=== PATIENT | male | born 1980 | race American Indian/Alaskan Native ===

== ENCOUNTER 2023-06-28 18:05 | Emergency (ER) | payer MEDICAID, OTHER ==
[2023-06-28 18:18] VITALS: BP 111/75; PULSE 81
[2023-06-28] MEDS: Ketorolac 30 MG/ML SDV IM ONE (18:23)
[2023-06-28] MEDS: Take Home: Ondansetron 4 MG Tab.DIS, 5 Tab Pack PO ONE (18:29)
== END 2023-06-28 18:35 | disposition home or self-care (01) ==
LOC: DL.ED 18:05
DX: J98.8 Other specified respiratory disorders (principal); Z88.0 Allergy status to penicillin; Z88.1 Allergy status to other antibiotic agents
CPT/HCPCS: 96372; 99282; 99283; J1885; Q0162

== ENCOUNTER 2024-01-28 13:36 | Emergency (ER) | payer MEDICAID ==
[2024-01-28] MEDS: Acetaminophen 500 MG Tab PO ONE (14:05)
[2024-01-28 14:06] LABS: BASOPHILS PERCENT AUTO 0.1 % (0.0-1.0); HEMATOCRIT 40.6 % (40.0-54.0); HEMOGLOBIN 13.8 g/dL (14.0-18.0); LYMPHOCYTES PERCENT AUTO 5.3 % (20.5-50.1); MEAN CORPUSCULAR HEMOGLOBIN 29.7 pg (27.0-34.0); MEAN CORPUSCULAR VOLUME 87.5 fL (80-100); MONOCYTES PERCENT AUTO 7.2 % (2-8); NEUTROPHILS PERCENT AUTO 87.4 % (42.2-75.2); PLATELET COUNT,PLT 197 10^3/uL (150-450); RED BLOOD CELL COUNT 4.64 10^6/uL (4.6-6.2)
[2024-01-28] MEDS: Sodium Chloride 0.9% 10 ML Syringe FLUSH PRN (14:13)
[2024-01-28 14:24] LABS: PROTHROMBIN TIME 10.8 SEC (9.0-12.0); PTT,PARTIAL THROMBOPLSTIN TIME 31.2 SEC (22.0-34.0)
[2024-01-28 14:26] LABS: A/G RATIO 0.78; ALANINE AMINOTRANSFERASE,ALT 15 U/L (16-63); ALBUMIN 2.9 g/dL (3.4-5.0); ALKALINE PHOSPHATASE 82 U/L (46-116); ANION GAP 9.3 mEq/L (7-13); ASPARTATE AMNIOTRANSFERASE,AST 17 U/L (15-37); BILIRUBIN TOTAL 0.6 mg/dL (0.2-1.0); BLOOD UREA NITROGEN,BUN 11 mg/dL (7-18); BUN/CREATININE RATIO 10.7 (No establ ref range); C-REACTIVE PROTEIN 9.99 ng/dL (<=0.50); CALCIUM 8.2 mg/dL (8.5-10.1); CARBON DIOXIDE,CO2 25 mmol/L (21-32); CHLORIDE,CL 98 mmol/L (98-107); CREATININE 1.03 mg/dL (0.70-1.30); EST CRCL DRUG DOSING (CG) 88.24 mL/min; ESTIMATED GFR 94 mL/min (>=60); ETHANOL BLOOD MEDICAL < 3 mg/dL (0); GLUCOSE RANDOM 117 mg/dL (70-99); MAGNESIUM 1.3 mg/dL (1.8-2.4); POTASSIUM,K 3.3 mmol/L (3.5-5.1); PROTEIN TOTAL,TP 6.6 g/dL (6.4-8.2); SODIUM,NA 129 mmol/L (136-145)
[2024-01-28 14:29] LABS: LACTIC ACID 1.3 mmol/L (0.4-2.0)
[2024-01-28] MEDS: Sodium Chloride 0.9% 1,000 ML IV ONE (14:46)
[2024-01-28] MEDS: Magnesium Sulfate/Water Premix 4 GM in Premix Bag 1 BAG IV ONE (14:46)
[2024-01-28] MEDS: Magnesium Sulfate/Water Premix 100 ML ONE (14:46)
[2024-01-28] MEDS: Iopamidol 612 MG/ML 100 ML Bottle IVPUSH ONE (15:00)
[2024-01-28 15:40] LABS: APPEARANCE,URINE CLEAR (CLEAR); BILIRUBIN,URINE NEGATIVE (NEGATIVE); COLOR,URINE YELLOW (YELLOW); GLUCOSE,URINE NEGATIVE (NEGATIVE); KETONES,URINE NEGATIVE (NEGATIVE); LEUKOCYTE ESTERASE,URINE NEGATIVE (NEGATIVE); NITRITE,URINE NEGATIVE (NEGATIVE); OCCULT BLOOD,URINE TRACE-INTACT (NEGATIVE); PH,URINE 6.5 (5.0-9.0); PROTEIN,URINE NEGATIVE (NEGATIVE); UROBILINOGEN,URINE 0.2 mg/dL (0.2-1.0)
[2024-01-28 15:44] LABS: AMPHETAMINES,URINE POSITIVE (NEGATIVE); BARBITURATES,URINE NEGATIVE (NEGATIVE); BENZODIAZEPINE,URINE NEGATIVE (NEGATIVE); MDMA (ECSTASY), URINE NEGATIVE (NEGATIVE); METHADONE,URINE NEGATIVE (NEGATIVE); METHAMPHETAMINES,URINE POSITIVE (NEGATIVE); OPIATES,URINE NEGATIVE (NEGATIVE); OXYCODONE,URINE NEGATIVE (NEGATIVE); PHENCYCLIDINE,URINE NEGATIVE (NEGATIVE); TCA,URINE NEGATIVE (NEGATIVE)
[2024-01-28 15:50] LABS: BACTERIA,URINE FEW /HPF (0-FEW/HPF); EPITHELIAL CELLS,URINE RARE /HPF (NOT SEEN); MUCUS,URINE OCCASIONAL /LPF (NOT SEEN); RBC,URINE 0-5 /HPF (0-5); WBC,URINE NOT SEEN /HPF (0-5/HPF)
== END 2024-01-28 15:35 | disposition left against medical advice (07) ==
LOC: DL.ED 13:36
DX: I80.8 Phlebitis and thrombophlebitis of other sites (principal); T80.1XXA Vascular complications following infusion, transfusion and therapeutic injection, initial encounter; E83.42 Hypomagnesemia; F15.10 Other stimulant abuse, uncomplicated; E87.1 Hypo-osmolality and hyponatremia; E87.6 Hypokalemia; Z88.1 Allergy status to other antibiotic agents; Z88.0 Allergy status to penicillin
CPT/HCPCS: 36415; 71045; 73201-LT; 80053; 80305-QW; 80307; 81001; 83605; 83735; 84145; 84484; 85025; 85610; 85730; 86140; 87040; 93005; 96365; 96368; 99285-25; A9270-GY; J3370; J3475; J3490; J7030; J7050; Q9967

== ENCOUNTER 2024-01-28 16:46 | Inpatient (IN) | payer MEDICAID ==
[2024-01-28] MEDS ORDERED: Sodium Chloride 0.9% 10 ML Syringe FLUSH PRN (17:02)
[2024-01-28] MEDS: Magnesium Sulfate/Water Premix 4 GM in Premix Bag 1 BAG IV ONE (17:39)
[2024-01-28] MEDS: Sodium Chloride 0.9% 1,000 ML IV ONE (17:46)
[2024-01-28] MEDS: Vancomycin 1 GM SDV ONE (17:48)
[2024-01-28] MEDS: Cefepime 2 GM Vial IVPUSH ONE (17:53)
[2024-01-28] MEDS ORDERED: Naloxone 2 MG/2 ML Syringe IVPUSH PRN (19:37)
[2024-01-28] MEDS ORDERED: Magnesium Hydroxide 400 MG/5 ML Susp 30 ML Cup PO PRN (19:37)
[2024-01-28] MEDS ORDERED: Polyethylene Glycol 3350 Powder 17 GM Packet PO PRN (19:37)
[2024-01-28] MEDS ORDERED: Sennosides/Docusate Sodium 50-8.6 MG Tab PO PRN (19:37)
[2024-01-28] MEDS ORDERED: Albuterol/Ipratropium 3.0-0.5 MG/3 ML Neb Soln NEB PRN (19:37)
[2024-01-28] MEDS ORDERED: Acetaminophen 325 MG Tab PO PRN (19:37)
[2024-01-28] MEDS ORDERED: Ketorolac 30 MG/ML SDV IVPUSH PRN (19:37)
[2024-01-28] MEDS: Lactated Ringers 1,000 ML IV STA (20:00)
[2024-01-28 20:07] LABS: HEMOGLOBIN A1C 5.4 % (<5.7)
[2024-01-28] MEDS: Lactated Ringers 1,000 ML IV ONE (21:08)
[2024-01-28] MEDS ORDERED: Glucagon,Human Recombinant 1 MG Vial IM PRN (21:13)
[2024-01-28] MEDS ORDERED: 50% Dextrose in Water 50 ML Syringe IVPUSH PRN (21:13)
[2024-01-28] MEDS ORDERED: LORazepam 2 MG/ML SDV IVPUSH PRN (21:15)
[2024-01-28] MEDS ORDERED: Diltiazem 25 MG/5 ML SDV IVPUSH PRN (21:15)
[2024-01-28] MEDS ORDERED: Flumazenil 0.1 MG/ML 5 ML MDV IVPUSH PRN (21:15)
[2024-01-28] MEDS ORDERED: hydrALAZINE 20 MG/ML SDV IVPUSH PRN (21:15)
[2024-01-28 21:51] LABS: LACTIC ACID 1.8 mmol/L (0.4-2.0)
[2024-01-28] MEDS: Midodrine 5 MG Tab PO ONE (22:07)
[2024-01-28] MEDS: Enoxaparin 80 MG/0.8 ML Syringe SUBCUT ONE (22:07)
[2024-01-28] MEDS: Famotidine 20 MG/2 ML SDV IVPUSH ONE (22:07)
[2024-01-28] MEDS: Sodium Chloride 0.9% 250 ML IV SCH (22:19)
[2024-01-28] MEDS: Insulin Lispro 100 Units/ML 3 ML Vial SUBCUT SCH (23:51)
[2024-01-29] MEDS: Hydrocortisone Sodium Succinate 100 MG/2 ML SDV IVPUSH SCH (00:09)
[2024-01-29] MEDS: Insulin Lispro 100 Units/ML 3 ML Vial SUBCUT SCH (00:13)
[2024-01-29] MEDS: Cefepime 2 GM Vial IVPUSH SCH (01:16)
[2024-01-29 06:30] LABS: BASOPHILS PERCENT AUTO 0.1 % (0.0-1.0); HEMATOCRIT 42.5 % (40.0-54.0); HEMOGLOBIN 14.6 g/dL (14.0-18.0); LYMPHOCYTES PERCENT AUTO 1.9 % (20.5-50.1); MEAN CORPUSCULAR HEMOGLOBIN 30.2 pg (27.0-34.0); MEAN CORPUSCULAR HGB CONC 34.4 g/dL (33.0-35.0); PLATELET COUNT,PLT 189 10^3/uL (150-450); RED BLOOD CELL COUNT 4.83 10^6/uL (4.6-6.2)
[2024-01-29 06:58] LABS: ALBUMIN 2.4 g/dL (3.4-5.0); BILIRUBIN TOTAL 0.5 mg/dL (0.2-1.0); BUN/CREATININE RATIO 14.5 (No establ ref range); C-REACTIVE PROTEIN 19.67 ng/dL (<=0.50); CREATININE 0.76 mg/dL (0.70-1.30); EST CRCL DRUG DOSING (CG) 132.07 mL/min; MAGNESIUM 2.3 mg/dL (1.8-2.4); POTASSIUM,K 4.1 mmol/L (3.5-5.1); PROTEIN TOTAL,TP 6.4 g/dL (6.4-8.2)
[2024-01-29 07:13] LABS: ANION GAP 14.1 mEq/L (7-13); CALCIUM 8.4 mg/dL (8.5-10.1)
[2024-01-29 07:23] LABS: A/G RATIO 0.6
[2024-01-29] MEDS ORDERED: Enoxaparin 40 MG/0.4 ML Syringe SUBCUT SCH (09:00)
[2024-01-29] MEDS: Enoxaparin 80 MG/0.8 ML Syringe SUBCUT SCH (09:19)
[2024-01-29] MEDS: Famotidine 20 MG/2 ML SDV IVPUSH SCH (09:20)
[2024-01-29] MEDS: Saccharomyces Boulardii (Probiotic) 250 MG Cap PO SCH (09:21)
[2024-01-29] MEDS: Midodrine 2.5 MG Tab PO SCH (09:21)
[2024-01-29 11:38] VITALS: PULSE 75
[2024-01-29] MEDS: HYDROmorphone 0.5 MG/0.5 ML Syringe IVPUSH PRN (13:43)
[2024-01-29] MEDS: Ondansetron 4 MG/2 ML SDV IVPUSH PRN (15:14)
[2024-01-29] MEDS: Acetaminophen/oxyCODONE 325-5 MG Tab PO PRN (17:57)
[2024-01-29 19:51] VITALS: BP 86/57
[2024-01-29] MEDS: Apixaban 5 MG Tab PO SCH (20:43)
[2024-01-29] MEDS: Midodrine 5 MG Tab PO SCH (20:44)
[2024-01-29] MEDS: Temazepam 15 MG Cap PO PRN (20:45)
[2024-01-31] MEDS ORDERED: Famotidine 20 MG Tab PO SCH (21:00)
== END 2024-01-29 22:15 | disposition left against medical advice (07) | DRG 871 ==
LOC: DL.ED 16:46 → DL.MS 17:28
PROVIDERS: ADMIT Internal Medicine; ATTEND Internal Medicine
DX: A41.89 Other specified sepsis (principal); G93.41 Metabolic encephalopathy; E87.1 Hypo-osmolality and hyponatremia; R65.20 Severe sepsis without septic shock; I95.9 Hypotension, unspecified; E87.6 Hypokalemia; E83.42 Hypomagnesemia; T43.655A Adverse effect of methamphetamines, initial encounter; R73.9 Hyperglycemia, unspecified; E88.09 Other disorders of plasma-protein metabolism, not elsewhere classified; I80.8 Phlebitis and thrombophlebitis of other sites; F10.20 Alcohol dependence, uncomplicated; Z88.0 Allergy status to penicillin; Z88.1 Allergy status to other antibiotic agents
CPT/HCPCS: 36415; 80053; 80202; 82533; 82550; 82947; 83036; 83605; 83735; 85025; 86140; 99285; A9270-GY; J0692; J1171; J1650; J1720; J1815-GY; J2405; J3370; J3475; J3490; J7030; J7050; J7120

== ENCOUNTER 2024-08-27 08:22 | Emergency (ER) | payer MEDICAID ==
[2024-08-27 08:45] VITALS: BP 120/75; PULSE 85
== END 2024-08-27 08:47 | disposition home or self-care (01) ==
LOC: DL.ED 08:22
DX: H60.92 Unspecified otitis externa, left ear (principal); I10 Essential (primary) hypertension; Z88.0 Allergy status to penicillin; Z88.1 Allergy status to other antibiotic agents
CPT/HCPCS: 99282; 99283